=== PATIENT | male | born 1945 | race Caucasian/White ===

== ENCOUNTER → 2016-11-15 | Outpatient (CLI) | payer MEDICARE, BC ==
--- NOTE | 2016-11-15 10:06 | RADRPT ---
PROCEDURE: XR pelvis/right hip. CLINICAL INDICATION: Hip pain TECHNIQUE: AP pelvis/AP and lateral right hip views performed COMPARISON: No prior studies are available for comparison. FINDINGS: There is moderate right hip osteoarthrosis. There is mild left hip osteoarthrosis This is associated with joint space narrowing, subchondral sclerosis and osteophytosis. There is normal mineralizatio n. No fractures or osseous lesions are identified. The soft tissues are unremarkable. IMPRESSION: Moderate right hip osteoarthrosis. Mild left hip osteoarthrosis RPTAT: [facility] .Duy Iverson MD, MD Date Time Electronically viewed and signed by .Duy Iverson MD, on 11/15/2016 10:05 .B/
== END | disposition home or self-care (01) ==
LOC: HKI 10:45
PROVIDERS: ATTEND Orthopaedic Surgery
DX: M25.551 Pain in right hip (principal); M16.11 Unilateral primary osteoarthritis, right hip
CPT/HCPCS: 73502; G0463

== ENCOUNTER → 2017-01-01 | Outpatient (CLI) | payer MEDICARE, BC ==
[~2017-01-01] VITALS: Ht 185.4 cm; Wt 142.9 kg
== END | disposition home or self-care (01) ==
LOC: HKI 09:19
PROVIDERS: ATTEND Orthopaedic Surgery
DX: M25.551 Pain in right hip (principal); M16.11 Unilateral primary osteoarthritis, right hip
CPT/HCPCS: G0463

== ENCOUNTER 2017-01-09 05:19 | Inpatient (IN) | END 2017-01-11 12:40 | disposition home or self-care (01) | DRG 470 | DX: M16.11 Unilateral primary osteoarthritis, right hip (principal); I10 Essential (primary) hypertension; E78.00 Pure hypercholesterolemia, unspecified; Z85.46 Personal history of malignant neoplasm of prostate; I25.10 Atherosclerotic heart disease of native coronary artery without angina pectoris ==

== ENCOUNTER → 2017-01-20 | Outpatient (CLI) | payer MEDICARE, BC ==
[~2017-01-20] MED LIST: ASPI325T32 PO; D3 PO; HYDR-3498 PO; LISI10TA2 PO; METO25TA7 PO; NCN500CCR PO; OMEG1CAP35 PO; PANT40TA4 PO; ROSU40TA35 PO; TRAM50TA2 PO; UBID1CAP25 PO; VALS1TAB15 PO
--- NOTE | 2017-01-20 11:35 | PN ---
Date/Time of Note Date/Time of Note DATE: 01/20/17 TIME: 11:31 Outpatient Progress Note HPI Patient presents today for his first postoperative evaluation. 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 He is doing well overall. He has been taking primarily tramadol for pain as that is all he needed. He denies any fevers or chills. He is doing physical therapy with home health. He is taking aspirin twice daily for DVT prophylaxis. He presents today for his first postoperative evaluation. Physical Exam On exam today, he is alert and oriented 4, and in no acute distress. He is ambulating with a front wheel walker. Exam of the incision demonstrates it to be clean, dry, and intact. There is no erythema, warmth, pus, or drainage noted. His leg lengths are equal. He has no pain with passive range of motion of the right hip joint. There is no significant soft tissue swelling. Compartments are soft. Homans sign is negative. He is neurovascularly intact distally. Imaging: X-rays of the right hip were obtained today and reviewed by me. They demonstrate the hip to be in good anatomic alignment with no fractures or dislocations identified. Allergies Coded Allergies: No Known Allergy (Unverified , 01/09/17) Assessment/Plan Assessment: 10 days status post right anterior total hip arthroplasty Plan: The rachael were removed today, and Steri-Strips were applied. He is to continue doing physical therapy with home health and transition to ambulating with a cane. He is also to continue aspirin twice daily for DVT prophylaxis. We will see him back in 4 weeks for repeat evaluation. He is to call the office in the meantime if he has any concerns. Medications Home Meds Active Scripts Hydrocodone Bit-Acetaminophen (Hydrocodone Bit-APAP) 5-325MG Tablet, 1 TAB PO Q4H Y for PAIN LEVEL 1-3 for 30 Days, #60 TAB Prov:KETTY SAM PA-C 01/09/17 Tramadol HCl (Tramadol HCl) 50 Mg Tablet, 50 MG PO Q6 for 30 Days, #60 TAB Prov:KETTY SAM PA-C 01/09/17 Pantoprazole* (Pantoprazole*) 40 Mg Tablet.dr 40 MG PO BID@06,18 for 40 Days, # 40 Prov:KETTY SAM PA-C 01/09/17 Aspirin (Aspir-Nathalie) 325 Mg Tablet.dr, 325 MG PO BID for 40 Days, #80 Prov:KETTY SAM PA-C 01/09/17 Reported Medications [place]-3/Dha/Epa/Fish Oil (FISH OIL 1,400 MG SOFTGEL) 1 Each Capsule.dr, 1 EACH PO 01/09/17 Ubidecarenone/Vit E Acetate (CO Q-10 100 MG SOFTGEL) 1 Each Capsule, 1 EACH PO, CAP 01/09/17 Lisinopril* (Lisinopril*) 10 Mg Tablet, 10 MG PO DAILY, #30 TAB 01/09/17 Valsartan/Hydrochlorothiazide (Diovan Hct 320-12.5 mg Tab) 1 Each Tablet, 1 EACH PO, TAB 01/09/17 [D3] No Conflict Check, 100 PO DAILY 01/09/17 Niacin* (Niaspan*) 500 Mg Tablet.sa, 500 MG PO BID, #30 TAB 01/09/17 Metoprolol Succinate* (Toprol XL*) 25 Mg Tab.sr.24h, 25 MG PO BID, #30 TAB 01/09/17 Rosuvastatin Calcium* (Crestor*) 40 Mg Tablet, 40 MG PO QHS, #30 TAB 01/09/17 KETTY SAM PA-C Jan 20, 2017 11:35
--- NOTE | 2017-01-20 16:24 | RADRPT ---
PROCEDURE: XR Right hip and pelvis. CLINICAL INDICATION: Right hip pain. Pelvic pain. Postop. TECHNIQUE: Two views. Frontal pelvis and frontal right hip. COMPARISON: 01/09/2017. FINDINGS: There is no fracture or dislocation. The soft tissues are normal. There is a right hip total arthroplasty which appears satisfactory. The left hip is grossly normal. There is no lytic or blastic lesion. The upper pelvis is not completely included on the image. IMPRESSION: 1. Satisfactory postoperative appearance of the right hip. 2. Grossly normal appearance of the left hip. RPTAT: QQ .Sandeep Meeks MD, MD Date Time Electronically viewed and signed by .Sandeep Meeks MD, on 01/20/2017 16:23 .R/
== END | disposition home or self-care (01) ==
LOC: HKI 10:19
PROVIDERS: ATTEND Orthopaedic Surgery
DX: Z47.1 Aftercare following joint replacement surgery (principal); Z96.641 Presence of right artificial hip joint
CPT/HCPCS: 73502